=== PATIENT | male | born 1960 | race Caucasian/White ===

== ENCOUNTER 2016-04-19 16:34 | Emergency (ER) | payer OTHER ==
[2016-04-19 16:49] VITALS: PULSE 63; O2SAT 97
[2016-04-19 16:54] VITALS: BP 192/94
[2016-04-19] MEDS ORDERED: XYLOCAINE 1% HCL 20 ML MDV IJ ONE (17:13)
--- NOTE | 2016-04-19 17:20 | ERPHSYRPT ---
- History of Present Illness Time Seen by Provider: 04/19/16 17:00 Source: patient Exam Limitations: clinical condition Patient Subjective Stated Complaint: FEET TWISTED AND PT FELL, ADN HIT CORNER OF DESK, NO LOC, NO OTHER INJURY, HAS LACERATION TO TOP OF HEAD Triage Nursing Assessment: PT ALERT AND IN NO DISTRESS, RESP EASY, SKIN W/D ,4 1 /2CMX 0.3CM Physician History: PATIENT SLIPPED AND FELL AT WORK SUSTAINED LACERATION TO LEFT SIDE OF HEAD. DENIES DIZZINESS, NAUSEA, EMESIS, BLURRED VISION, NECK PAIN, LOSS OF CONSCIOUSNESS. Occurred: just prior to arrival Head Injury Location: parietal Method of Injury: direct blow Loss of Consciousness: no loss of consciousness Associated Symptoms: denies symptoms Allergies/Adverse Reactions: bacitracin [From Neosporin ([id number])] Allergy (Verified 04/19/16 16:49) neomycin [From Neosporin ([id number])] Allergy (Verified 04/19/16 16:49) polymyxin B [From Neosporin ([id number])] Allergy (Verified 04/19/16 16:49) Home Medications: Unobtainable [Unobtainable] 04/19/16 [History] Hx Tetanus, Diphtheria Vaccination/Date Given: Yes (2004) Hx Influenza Vaccination/Date Given: Yes Hx Pneumococcal Vaccination/Date Given: No Immunizations Up to Date: Yes - Review of Systems Constitutional: No Fever, No Chills Eyes: No Symptoms Ears, Nose, & Throat: No Symptoms Respiratory: No Symptoms, No Cough, No Dyspnea Cardiac: No Symptoms, No Chest Pain, No Edema, No Syncope Abdominal/Gastrointestinal: No Abdominal Pain, No Nausea, No Vomiting, No Diarrhea Genitourinary Symptoms: No Dysuria Musculoskeletal: No Back Pain, No Neck Pain Skin: No Rash Neurological: No Dizziness, No Focal Weakness, No Sensory Changes Psychological: No Symptoms Endocrine: No Symptoms All Other Systems: Reviewed and Negative - Past Medical History Pertinent Past Medical History: Yes Cardiac History: High Cholesterol - Past Surgical History Past Surgical History: No - Social History Smoking Status: Current some day smoker Exposure to second hand smoke: Yes Patient Lives Alone: No - Nursing Vital Signs Nursing Vital Signs: Initial Vital Signs Temperature 97.9 F Temperature Source Oral Pulse Rate 63 Respiratory Rate 16 Blood Pressure [Right Arm] 192/94 Pain Intensity 0 - Venkat Coma Score Best Eye Response (Venkat): (4) open spontaneously Best Verbal Response (Venkat): (5) oriented Best Motor Response ([place]): (6) obeys commands Venkat Total: 15 - Physical Exam General Appearance: no apparent distress, alert Head Injury: lacerations (THERE IS A 6CM LACERATION LEFT LATERAL OCCIPITAL SCALP , NO SURROUNDING ECCHYMOSIS, SWELLING OR CREPITUS) Eye Exam: bilateral eye: PERRL, EOMI ENT Exam: airway nml Neck Exam: supple, full range of motion (NONTENDER), normal inspection Cardiovascular/Respiratory Exam: chest non-tender, normal breath sounds, regular rate/rhythm Back Exam: normal inspection, No vertebral tenderness Extremity Exam: non-tender, normal range of motion, normal inspection Mental Status Exam: alert, oriented x 3, 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 Exam: normal hearing, normal speech Coordination/Gait Exam: normal finger to nose Motor/Sensory Exam: no motor deficit, no sensory deficit, CN II-XII intact Skin Exam: normal color, warm, dry, No rash SpO2 Interpretation: normal SpO2: 97 Oxygen Delivery: Room Air Procedures - Laceration/Wound Repair Head Wound Location: Left, head (LATERAL OCCIPITAL SCALP) Wound Length (cm): 6 Wound's Depth, Shape: linear Wound Explored: clean Irrigated: Yes Hibiclens Prep: Yes Anesthesia: 1% Lidocaine Volume Anesthetic (ccs): 6 Wound Repaired With: sutures Suture Size/Type: 4-0 Number of Sutures: 7 Layer Closure?: No - Progress Progress Note: 04/19/16 17:21 TETNUS UP TO DATE Counseled pt/family regarding: diagnosis, need for follow-up - Departure Time of Disposition: 17:30 Departure Disposition: Home Clinical Impression: OCCIPITAL SCALP LACERATION Condition: Stable Critical Care Time: No Instructions: Care for a Laceration After Repair Additional Instructions: MAY SHAMPOO HAIR TODAY. FOLLOW HEAD INJURY INSTRUCTIONS FOR 24 HOURS. HAVE STITCHES REMOVED AT 10 DAYS. WATCH FOR SIGNS OF INFECTION, REDNESS, SWELLING OR DRAINAGE. TYLENOL EVERY 4 HOURS NEEDED FOR PAIN.
== END 2016-04-19 17:34 ==
LOC: ED 16:34
PROC: 0HQ0XZZ Repair Scalp Skin, External Approach (ICD-10-PCS; principal; 2016-04-19)
DX: S01.01XA Laceration without foreign body of scalp, initial encounter (principal); W01.190A Fall on same level from slipping, tripping and stumbling with subsequent striking against furniture, initial encounter; Y92.89 Other specified places as the place of occurrence of the external cause; Y99.0 Civilian activity done for income or pay
CPT/HCPCS: 12002; 99282